=== PATIENT | female | born 1985 | race Caucasian/White ===

== ENCOUNTER 2025-07-09 10:32 | Outpatient (CLI) | payer MEDICAID, SELFPAY ==
[2025-07-09 11:29] LABS: Hematocrit 41.8 % (36-47); Hemoglobin 13.30 g/dL (11.27-16.99); Mean Corpuscular HGB Conc 31.8 g/dL (30-55); Mean Corpuscular Hemoglobin 26.7 pg (27-33); Mean Corpuscular Volume 83.9 fl (85-98); Nucleated Red Blood Cells % 0 %; Platelet Count 364 10^3/cmm (157-399); Red Blood Count 4.98 10^6/uL (3.85-5.65); White Blood Count 7.96 10^3/uL (3.29-11.43)
[2025-07-09 12:13] LABS: Alanine Aminotransferase 19 U/L (0-33); Albumin Level 4.2 g/dL (3.5-5.2); Alkaline Phosphatase 74 U/L (35-105); Anion Gap 16.2 (5-19); Aspartate Amino Transferase 23 U/L (0-32); Blood Urea Nitrogen 5 mg/dL (6-20); Calcium 8.9 mg/dL (8.5-10.5); Carbon Dioxide 22 mmol/L (22-29); Chloride 104 mmol/L (98-107); Ferritin 24 ng/mL (15-150); Globulin 3.5 g/dL (1.3-4.6); Glucose 96 mg/dL (65-115); Iron 109 ug/dL (37-145); Osmolality Calculated 283 mOsm/kg (285-295); Potassium 4.2 mmol/L (3.5-5.1); Sodium 138 mmol/L (136-145); Thyroid Stimulating Hormone 1.07 uIU/mL (0.27-4.20); Total Iron Binding Capacity 433 mcg/dl; Total Protein 7.7 g/dL (6.6-8.7); Unsaturated Iron Binding 324 ug/dL (112-347); Vitamin B12 441 pg/mL (232-1245)
== END 2025-07-09 10:33 | disposition home or self-care (01) ==
PROVIDERS: Specialist; PCP Family Medicine; Visit Provider Family Medicine
DX: G25.81 Restless legs syndrome (principal); R03.0 Elevated blood-pressure reading, without diagnosis of hypertension
CPT/HCPCS: 36415; 80053; 82607; 82728; 83540; 83550; 84443; 85025; 85651; 99204

== ENCOUNTER 2025-09-08 16:47 | Inpatient (IN) | payer MEDICAID, SELFPAY ==
--- OUTSIDE RECORDS SUMMARY | 2018-05-29 08:49 | XMS_ITS | Continuity of Care Document ---
Author Organization [employer] Address [address] [facility] [place] [address] Phone Care Team Providers Care New Media Strategist Name Role Phone Gurpreet Nassar MD Unavailable Unavailable Allergies, Adverse Reactions, Alerts Substance Reaction Status Criticality No Known Allergies Active No Inform ation Medications Medication Instructions Dosage Effective Dates (start - stop) Status Comments amitriptyline 25 mg tablet take 1 tablet by oral route every day at bedtime 25 MG - Active Celexa 40 mg tablet take 1 tablet by oral route every day 40 MG - Active terazosin 1 mg capsule take 2 capsule by oral route every day at bedtime 2 MG - Active terazosin 1 mg capsule take 2 capsule by oral route every day at bedtime 2 MG - No Longer Active amitriptyline 25 mg tablet take 1 tablet by oral route every day at bedtime 25 MG - No Longer Active Celexa 40 mg tablet take 1 tablet by oral route every day 40 MG - No Longer Active Procedures Procedure Date OFFICE/OUTPATIENT VISIT NEW Advance Directives Directive Yes / No Effective Date File Name No Information Encounters Encounter Description Practice Location Reason(s) For Visit Diagnoses Date Provider Providers Copied on Encounter [facility], [address] [place], [place], [id number], [place] tel:[phone] [facility] No Information Cesario Vázquez. [address], [place], [id number], [place]. tel:[phone] [facility], [address] , [place], [place], [id number], [place] tel:[phone] [facility] No Information Cesario Gurpreet. [address] [place] [address], [id number], [place]. tel:[phone] OFFICE/OUTPAT IENT VISIT [facility], [address] , [place], [place], [id number], [place] tel:[phone] [facility] establish care (chief complaint)P TSD (chief complaint) Post-traumati c stress disorder, unspecified Cesario Vázquez. [address] [place] [address], [id number], [place]. tel:[phone] Family History Family Member Type Diagnosis Age At Onset No Information Payers Payer name Insurance type Covered democrat ID Authoriza tion(s) No Information Social History Type Description Quantity Date Captured Comments Sex Female Smoking Status No Information Sexual Orientation Straight or heterosexual Jul Gender Identity Female Chief Complaint And Reason For Visit No Information Reason For Referral Reason For Referral No Information Plan Of Treatment Date Type Action Status Goal Tdap. Due on due Goal Td vaccine. Due on 18 due Goal Influenza vaccine. Due on due Goal Depression screening. Due on due Goal Pap/HPV testing. Due on due History Of Present Illness Encounter Date Complaint History Of Prese nt Illness PTSD establish care Functional Status Date Functional Assessmen t No Information Instructions Date Instruction Additional Infor mation No Information Assessments Type Assessment Date No Information Patient Care Teams Name Effective Dates (start - stop) Status Members No Information
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
[2025-09-08 16:53] VITALS: BMI 32.5
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
--- NOTE | 2025-09-08 16:59 | W.ED.PSYCHS ---
Documented by User: PRASAD Joy 09/08/25 17:57 HPI - Psych General: Chief Complaint: Psychiatric Symptoms Stated Complaint: SI - ETOH Time Seen by Provider: 09/08/25 16:48 Source: patient and EMS Mode of arrival: EMS Limitations: other (noncompliant patient) History of Present Illness: Patient is a 40-year-old female who presents the emergency department by ambulance for reported suicidal ideation. She arrives intoxicated screaming on arrival, intermittently hitting herself in the face and overall noncompliant patient limiting the review of systems and history. Unknown who called the ambulance, she has made comments to me about wanting to kill herself by hanging. She had also reported this to EMS personnel. She endorses hallucinations while in the room believing that she sees a dog. Tells me that she drinks daily, today states that she has had about a pint of fireball and has also smoked marijuana. Does not report any other substance use. She is telling me that she hurts all over, and wants to go to the psych unit as well as to rehabilitation. MD complaint: suicidal ideation Related Data Home Medications ?Medication ?Instructions ?Recorded ?Confirmed cetirizine 10 mg tablet 10 mg PO QDAY 07/09/25 09/08/25 chlorpromazine 100 mg tablet 100 mg PO BID 07/09/25 09/08/25 disulfiram 500 mg tablet 500 mg PO DAILY 07/09/25 09/08/25 eszopiclone 2 mg tablet 2 mg PO ONCE 07/09/25 09/08/25 fluticasone propionate 50 1 spray intranasal BID 07/09/25 09/08/25 mcg/actuation nasal spray,suspension gabapentin 600 mg tablet 600 mg PO BID 07/09/25 09/08/25 lamotrigine 100 mg tablet 100 mg PO BID 07/09/25 09/08/25 pantoprazole 40 mg tablet,delayed 40 mg PO DAILY 07/09/25 09/08/25 release ziprasidone HCl 40 mg capsule 40 mg PO DAILY 07/09/25 09/08/25 ropinirole 2 mg tablet 2 mg PO BEDTIME 09/08/25 09/08/25 Previous Rx's ?Medication ?Instructions ?Recorded clonazepam 1 mg tablet (Klonopin) 1 mg PO .QPM #30 tabs 08/15/25 Allergies Allergy/AdvReac Type Severity Reaction Status Date / Time trazodone Allergy Severe ADR-Muscle Verified 09/08/25 21:53 Pain Review of Systems General: Reports: Other (unobtainable due to poor historian) PFS ED PFSH: Social History Smoking and tobacco/nicotine status: current every day tobacco/nicotine user Alcohol intake: current Substance/Drug Use: current Substance/Drug use frequency: few times a week Lives independently: No Household members: friend(s) Housing: House Marital status: Single service: No Current occupational status: disabled Physical Exam Const: OTHER: Patient is noncompliant, uncooperative, intermittently hitting herself and screaming. Intoxicated HENMT: COMMON NORMALS: normocephalic and atraumatic HEAD & SCALP: normocephalic and atraumatic OTHER: No facial bruising, abrasions, or lacerations Eye: COMMON NORMALS: Equal, round and reactive pupils present and EOMs intact bilaterally PUPIL: Yes Equal, round and reactive pupils present Neck/C-Spine: COMMON NORMALS: full ROM Resp: COMMON NORMALS: normal respiratory effort, No retractions, No use of accessory muscles and clear to auscultation bilaterally AUSCULTATION: clear to auscultation bilaterally Cardio: COMMON NORMALS: regular rate, regular rhythm, S1 normal heart sound present and S2 normal heart sound present RATE: regular rate RHYTHM: regular rhythm HEART SOUNDS: S1 normal heart sound present and S2 normal heart sound present Extremity: NARRATIVE EXTREMITY EXAM: Swelling and scattered abrasions and bruising to her dorsal right hand from punching Neuro: COMMON NORMALS: moves all extremities, no focal motor deficits and no sensory deficits noted Psych: APPEARANCE: Yes disheveled ATTITUDE: Yes uncooperative and Yes aggressive ACTIVITY/MOTOR BEHAVIOR: Yes hyperactivity SPEECH: Yes incoherent MOOD & AFFECT: Yes hostile affect THOUGHT PROCESS: incoherent THOUGHT CONTENT: Yes Suicidality present, No Homicidality present and Yes Hallucination(s) present visual Skin: COMMON NORMALS: no rashes or lesions noted GENERAL SKIN EXAM: no rashes or lesions noted Course Vital Signs: Vital signs: Vital Signs Temperature 97.6 F 09/09/25 06:28 Pulse Rate 86 09/09/25 06:28 Respiratory Rate 17 09/09/25 06:28 Blood Pressure 105/79 09/09/25 06:28 Pulse Oximetry 98 09/09/25 06:28 Oxygen Delivery Me thod Room Air 09/09/25 06:28 MDM - Psych Medical Decision Making Patient presented by ambulance for reported suicide ideation/attempt by hanging herself, intoxicated by EMS arrival and she is belligerent here in the emergency department requiring restraint as well as medication. She had been self-harming by hitting objects as well as herself, x-ray of the right hand however does not reveal any bony abnormality. She was overall poor historian unable to tell me why she was having thoughts, history of recent thoughts, medication changes, or any other reliable history. Blood alcohol is 307, she will be cleared medically and monitored here in the emergency department for appropriate amount of time prior to admission to the neuropsychiatric unit where Dr. Rogers accepts. She is on a 96-hour hold, affidavits in chart. Dr. Estrada briefed on this patient's case. Lab Data 09/08/25 17:11 09/08/25 17:11 Radiology Impressions Hand X-Ray 09/08/25 16:53 IMPRESSION: No acute findings. Laboratory Results WBC 10.39 10^3/uL (3.29-11.43) 09/08/25 17:11 RBC 4.95 10^6/uL (3.85-5.65) 09/08/25 17:11 Hgb 13.10 g/dL (11.27-16.99) 09/08/25 17:11 Hct 40.0 % (36-47) 09/08/25 17:11 MCV 80.8 fl (85-98) L 09/08/25 17:11 MCH 26.5 pg (27-33) L 09/08/25 17:11 MCHC 32.8 g/dL (30-55) 09/08/25 17:11 RDW 15.9 % (12.1-15.1) H 09/08/25 17:11 Plt Count 412 10^3/cmm (157-399) H 09/08/25 17:11 MPV 9.5 fL (7.4-10.4) 09/08/25 17:11 Neut % (Auto) 24.0 % 09/08/25 17:11 Lymph % (Auto) 63.3 % 09/08/25 17:11 Stanislaus % (Auto) 7.0 % 09/08/25 17:11 Eos % (Auto) 3.9 % 09/08/25 17:11 Baso % (Auto) 1.6 % 09/08/25 17:11 Neut # (Auto) 2.48 10^3/uL (1.8-7.7) 09/08/25 17:11 Lymph # (Auto) 6.6 10^3/uL (0.8-4.8) H 09/08/25 17:11 Stanislaus # (Auto) 0.7 10^3/uL (0.2-0.9) 09/08/25 17:11 Eos # (Auto) 0.4 10^3/uL (0.0-0.8) 09/08/25 17:11 Baso # (Auto) 0.2 10^3/uL (0.0-0.1) H 09/08/25 17:11 Nucleated RBC % (auto) 0 % 09/08/25 17:11 Nucleated RBCs # 0.0 /100WBC 09/08/25 17:11 Sodium 145 mmol/L (136-145) 09/08/25 17:11 Potassium 3.8 mmol/L (3.5-5.1) 09/08/25 17:11 Chloride 110 mmol/L (98-107) H 09/08/25 17:11 Carbon Dioxide 20 mmol/L (22-29) L 09/08/25 17:11 Anion Gap 18.8 (5-19) 09/08/25 17:11 BUN 4 mg/dL (6-20) L 09/08/25 17:11 Creatinine 0.7 mg/dL (0.5-0.9) 09/08/25 17:11 GFR Calculation 92.7 mL/min (90-130) 09/08/25 17:11 Glucose 101 mg/dL (65-115) 09/08/25 17:11 Calculated Osmolality 297 mOsm/kg (285-295) H 09/08/25 17:11 Calcium 8.5 mg/dL (8.5-10.5) 09/08/25 17:11 Total Bilirubin 0.2 mg/dL (0.15-1.2) 09/08/25 17:11 AST 25 U/L (0-32) 09/08/25 17:11 ALT 23 U/L (0-33) 09/08/25 17:11 Alkaline Phosphatase 94 U/L (35-105) 09/08/25 17:11 Total Protein 7.6 g/dL (6.6-8.7) 09/08/25 17:11 Albumin 4.2 g/dL (3.5-5.2) 09/08/25 17:11 Globulin 3.4 g/dL (1.3-4.6) 09/08/25 17:11 HCG, Qual Negative (Negative) 09/08/25 17:11 Salicylates < 0.3 mg/dL (3-10) L 09/08/25 17:11 Urine Opiates Screen Negative ng/mL (Negative) 09/08/25 17:03 Acetaminophen < 5.0 ug/mL (10-30) L 09/08/25 17:11 Ur Barbiturates Screen Negative ng/mL (Negative) 09/08/25 17:03 Ur Phencyclidine Scrn Negative ng/mL (Negative) 09/08/25 17:03 Ur Amphetamines Screen Negative ng/mL (Negative) 09/08/25 17:03 U Benzodiazepines Scrn Negative ng/mL (Negative) 09/08/25 17:03 Urine Cocaine Screen Negative ng/mL (Negative) 09/08/25 17:03 U Marijuana (THC) Screen Positive ng/mL (Negative) H 09/08/25 17:03 Ethyl Alcohol 307 mg/dL (0-10) H* 09/08/25 17:11 All radiology interpretation(s) finalized by discharge Discharge Plan Discharge Patient Disposition: Admitted As Inpatient Admit Provider: Srini Rogers Clinical Impression: Suicidal ideation, Alcohol intoxication Condition: Stable Coding Level of Care Code ED Swing Grinder for Halleyg Fwd Documented by User: Isai Estrada DO 09/09/25 07:06 HPI - Psych General: Chief Complaint: Psychiatric Symptoms Stated Complaint: SI - ETOH Time Seen by Provider: 09/08/25 16:48 Related Data Home Medications ?Medication ?Instructions ?Recorded ?Confirmed cetirizine 10 mg tablet 10 mg PO QDAY 07/09/25 09/08/25 chlorpromazine 100 mg tablet 100 mg PO BID 07/09/25 09/08/25 disulfiram 500 mg tablet 500 mg PO DAILY 07/09/25 09/08/25 eszopiclone 2 mg tablet 2 mg PO ONCE 07/09/25 09/08/25 fluticasone propionate 50 1 spray intranasal BID 07/09/25 09/08/25 mcg/actuation nasal spray,suspension gabapentin 600 mg tablet 600 mg PO BID 07/09/25 09/08/25 lamotrigine 100 mg tablet 100 mg PO BID 07/09/25 09/08/25 pantoprazole 40 mg tablet,delayed 40 mg PO DAILY 07/09/25 09/08/25 release ziprasidone HCl 40 mg capsule 40 mg PO DAILY 07/09/25 09/08/25 ropinirole 2 mg tablet 2 mg PO BEDTIME 09/08/25 09/08/25 Previous Rx's ?Medication ?Instructions ?Recorded clonazepam 1 mg tablet (Klonopin) 1 mg PO .QPM #30 tabs 08/15/25 Allergies Allergy/AdvReac Type Severity Reaction Status Date / Time trazodone Allergy Severe ADR-Muscle Verified 09/08/25 21:53 Pain PFSH ED PFSH: Social History Smoking and tobacco/nicotine status: current every day tobacco/nicotine user Alcohol intake: current Substance/Drug Use: current Substance/Drug use frequency: few times a week Lives independently: No Household members: friend(s) Housing: House Marital status: Single service: No Current occupational status: disabled Course Vital Signs: Vital signs: Vital Signs Temperature 97.6 F 09/09/25 06:28 Pulse Rate 86 09/09/25 06:28 Respiratory Rate 17 09/09/25 06:28 Blood Pressure 105/79 09/09/25 06:28 Pulse Oximetry 98 09/09/25 06:28 Oxygen Delivery Me thod Room Air 09/09/25 06:28 MDM - Psych Medical Decision Making Patient presented by ambulance for reported suicide ideation/attempt by hanging herself, intoxicated by EMS arrival and she is belligerent here in the emergency department requiring restraint as well as medication. She had been self-harming by hitting objects as well as herself, x-ray of the right hand however does not reveal any bony abnormality. She was overall poor historian unable to tell me why she was having thoughts, history of recent thoughts, medication changes, or any other reliable history. Blood alcohol is 307, she will be cleared medically and monitored here in the emergency department for appropriate amount of time prior to admission to the neuropsychiatric unit where Dr. Rogers accepts. She is on a 96-hour hold, affidavits in chart. Dr. Estrada briefed on this patient's case. Chart reviewed and patient discussed with midlevel. Agree with assessment and plan. Lab Data 09/08/25 17:11 09/08/25 17:11 Radiology Impressions Hand X-Ray 09/08/25 16:53 IMPRESSION: No acute findings. Laboratory Results WBC 10.39 10^3/uL (3.29-11.43) 09/08/25 17:11 RBC 4.95 10^6/uL (3.85-5.65) 09/08/25 17:11 Hgb 13.10 g/dL (11.27-16.99) 09/08/25 17:11 Hct 40.0 % (36-47) 09/08/25 17:11 MCV 80.8 fl (85-98) L 09/08/25 17:11 MCH 26.5 pg (27-33) L 09/08/25 17:11 MCHC 32.8 g/dL (30-55) 09/08/25 17:11 RDW 15.9 % (12.1-15.1) H 09/08/25 17:11 Plt Count 412 10^3/cmm (157-399) H 09/08/25 17:11 MPV 9.5 fL (7.4-10.4) 09/08/25 17:11 Neut % (Auto) 24.0 % 09/08/25 17:11 Lymph % (Auto) 63.3 % 09/08/25 17:11 Stanislaus % (Auto) 7.0 % 09/08/25 17:11 Eos % (Auto) 3.9 % 09/08/25 17:11 Baso % (Auto) 1.6 % 09/08/25 17:11 Neut # (Auto) 2.48 10^3/uL (1.8-7.7) 09/08/25 17:11 Lymph # (Auto) 6.6 10^3/uL (0.8-4.8) H 09/08/25 17:11 [place] # (Auto) 0.7 10^3/uL (0.2-0.9) 09/08/25 17:11 Eos # (Auto) 0.4 10^3/uL (0.0-0.8) 09/08/25 17:11 Baso # (Auto) 0.2 10^3/uL (0.0-0.1) H 09/08/25 17:11 Nucleated RBC % (auto) 0 % 09/08/25 17:11 Nucleated RBCs # 0.0 /100WBC 09/08/25 17:11 Sodium 145 mmol/L (136-145) 09/08/25 17:11 Potassium 3.8 mmol/L (3.5-5.1) 09/08/25 17:11 Chloride 110 mmol/L (98-107) H 09/08/25 17:11 Carbon Dioxide 20 mmol/L (22-29) L 09/08/25 17:11 Anion Gap 18.8 (5-19) 09/08/25 17:11 BUN 4 mg/dL (6-20) L 09/08/25 17:11 Creatinine 0.7 mg/dL (0.5-0.9) 09/08/25 17:11 GFR Calculation 92.7 mL/min (90-130) 09/08/25 17:11 Glucose 101 mg/dL (65-115) 09/08/25 17:11 Calculated Osmolality 297 mOsm/kg (285-295) H 09/08/25 17:11 Calcium 8.5 mg/dL (8.5-10.5) 09/08/25 17:11 Total Bilirubin 0.2 mg/dL (0.15-1.2) 09/08/25 17:11 AST 25 U/L (0-32) 09/08/25 17:11 ALT 23 U/L (0-33) 09/08/25 17:11 Alkaline Phosphatase 94 U/L (35-105) 09/08/25 17:11 Total Protein 7.6 g/dL (6.6-8.7) 09/08/25 17:11 Albumin 4.2 g/dL (3.5-5.2) 09/08/25 17:11 Globulin 3.4 g/dL (1.3-4.6) 09/08/25 17:11 HCG, Qual Negative (Negative) 09/08/25 17:11 Salicylates < 0.3 mg/dL (3-10) L 09/08/25 17:11 Urine Opiates Screen Negative ng/mL (Negative) 09/08/25 17:03 Acetaminophen < 5.0 ug/mL (10-30) L 09/08/25 17:11 Ur Barbiturates Screen Negative ng/mL (Negative) 09/08/25 17:03 Ur Phencyclidine Scrn Negative ng/mL (Negative) 09/08/25 17:03 Ur Amphetamines Screen Negative ng/mL (Negative) 09/08/25 17:03 U Benzodiazepines Scrn Negative ng/mL (Negative) 09/08/25 17:03 Urine Cocaine Screen Negative ng/mL (Negative) 09/08/25 17:03 U Marijuana (THC) Screen Positive ng/mL (Negative) H 09/08/25 17:03 Ethyl Alcohol 307 mg/dL (0-10) H* 09/08/25 17:11 Discharge Plan Discharge Patient Disposition: Admitted As Inpatient Admit Provider: Srini Rogers Clinical Impression: Suicidal ideation, Alcohol intoxication Condition: Stable Coding Level of Care Code ED Swing Grinder for Eleazar Escobedo
[2025-09-08] MEDS: diphenhydrAMINE 50 mg/mL SDV 1mL IM (17:10)
[2025-09-08] MEDS: LORazepam 2 mg/mL INJ 1 mL IM (17:11)
[2025-09-08] MEDS: haloperidol inj 5 mg/mL INJ 1 mL IM ×2 (17:11→18:19)
[2025-09-08 17:14] VITALS: BP 123/83; PULSE 132; RESP 20; TEMP 37; O2SAT 97
--- NOTE | 2025-09-08 17:23 | PC.NURSE ---
PATIENT PLACED IN RESTRAINT BED DUE TO PUNCHING THE GLASS, LAM, AND HITTING HER HEAD. CODE 10 CALLED @ 1878.
[2025-09-08 17:37] LABS: Hematocrit 40.0 % (36-47); Hemoglobin 13.10 g/dL (11.27-16.99); Mean Corpuscular HGB Conc 32.8 g/dL (30-55); Mean Corpuscular Hemoglobin 26.5 pg (27-33); Mean Corpuscular Volume 80.8 fl (85-98); Nucleated Red Blood Cells % 0 %; Platelet Count 412 10^3/cmm (157-399); Red Blood Count 4.95 10^6/uL (3.85-5.65); White Blood Count 10.39 10^3/uL (3.29-11.43)
--- NOTE | 2025-09-08 17:41 | PC.NURSE ---
96 hr rights reviewed with pt @8215 with assistance of [facility] flight radio officer Mark. Copy of rights left with pt belongings. Water provided.
[2025-09-08 17:42] LABS: HCG, Serum Qual Negative (Negative)
[2025-09-08 17:48] LABS: Alanine Aminotransferase 23 U/L (0-33); Albumin Level 4.2 g/dL (3.5-5.2); Alkaline Phosphatase 94 U/L (35-105); Anion Gap 18.8 (5-19); Aspartate Amino Transferase 25 U/L (0-32); Blood Urea Nitrogen 4 mg/dL (6-20); Calcium 8.5 mg/dL (8.5-10.5); Carbon Dioxide 20 mmol/L (22-29); Chloride 110 mmol/L (98-107); Globulin 3.4 g/dL (1.3-4.6); Glucose 101 mg/dL (65-115); Osmolality Calculated 297 mOsm/kg (285-295); Potassium 3.8 mmol/L (3.5-5.1); Sodium 145 mmol/L (136-145); Total Protein 7.6 g/dL (6.6-8.7)
[2025-09-08 17:51] LABS: Acetaminophen < 5.0 ug/mL (10-30); Alcohol Level 307 mg/dL (0-10); Salicylate < 0.3 mg/dL (3-10)
[2025-09-08 18:02] LABS: Slide Review Slide Review Perform
--- NOTE | 2025-09-08 18:20 | PC.NURSE ---
PT UNCOOPERATIVE, UNABLE TO MONITOR VITALS. PT CONTINUOUSLY SCREAMING.
[2025-09-08 18:21] LABS: PCP Screen Urine Negative (Negative)
--- NOTE | 2025-09-08 19:27 | PC.NURSE ---
PT IS STILL REFUSING V/S PT KEEPS SCREAMING AND WILL NOT LISTEN TO STAFF TO STOP YELLING.
[2025-09-08 20:27] VITALS: BP 131/94; PULSE 114; O2SAT 100
[2025-09-08 20:55] LABS: Alcohol Level 236 mg/dL (0-10)
--- OUTSIDE RECORDS SUMMARY | 2025-09-08 21:27 | XMS_ITS | Clinical Summary ---
Author Organization [facility] Administrative Offices Address [address] [place] [id number] Care Team Providers Care Radiology Technologist Name Role Phone Unavailable Primary Care Provider Unavailabl e Medications No known medications Active Problems Problem Noted Date Diagnosed Date Weakness of left hand 08/12/2024 Encounters Date Type Department Care Team Description 09/02/2025 External Device Data [facility] Provider, Abstract 08/05/2025 External Device Data [facility] Provider, Abstract 07/30/2025 External Device Data [facility] Provider, Abstract 07/30/2025 External Device Data [facility] Provider, Abstract 07/22/2025 External Device Data [facility] Provider, Abstract 06/24/2025 External Device Data [facility] Provider, Abstract 06/24/2025 External Device Data [facility] Provider, Abstract 06/24/2025 External Device Data [facility] Provider, Abstract from Last 3 Months Social History Tobacco Use Types Packs/Day Years Used Date Smoking Tobacco: Every Day Cigarettes 0.5 5.9 Started: 2020 Tobacco Cessation:Ready to Q uit: Not Asked; Counseling Given: Not Answered Comments Unknown Sex and Gender Information Value Date Recorded Sex Assigned at Not on file Legal Sex Female 1:19 PM CDT Gender Identity Not on file Sexual Orientation Not on file Last Filed Vital Signs Vital Sign Reading Time Taken Comments Blood Pressure 110/82 10/01/2024 9:40 AM BUSINESS ANALYST Pulse - - Temperature - - Respiratory Rate - - Oxygen Saturation - - Inhaled Oxygen Concentration - - Weight 86.2 kg (190 lb) 10/01/2024 9:40 AM BUSINESS ANALYST Height 162.6 cm (5' 4 ) 10/01/2024 9:40 AM BUSINESS ANALYST Body Mass Index 32.61 10/01/2024 9:40 AM BUSINESS ANALYST Plan of Treatment Health Maintenance Due Date Last Done Comments Pre-Diabetes and Diabetes Screening 1985 DTAP/TDAP/TD VACCINES (1 - Tdap) 2004 HEPATITIS B VACCINES (1 of 3 - 19+ 3-dose series) 11/2003 HPV/Cotest (21-29) 2006 CERVICAL CANCER SCREENING 2015 HPV/Cotest (30-65) 2015 PAP SMEAR 2015 INFLUENZA VACCINE (#1) 2025 BREAST CANCER SCREENING 2025 HPV VACCINES (No Doses Required) Completed Insurance [id number] [place] [address] [facility] MEDICAID
--- OUTSIDE RECORDS SUMMARY | 2025-09-08 21:27 | XMS_ITS | Encounter Summary ---
Author Organization [facility] Address [address] [place] [address] Care Team Providers Care Culturist Name Role Phone Unavailable Primary Care Provider Unavailabl e Encounter Details Date Type Department Care Team (Late st Contact Info) Description 09/02/2025 External Device Data [facility] Provider, Abstract NO ADDRESS ON FILE Social History Tobacco Use Types Packs/Day Years Used Date Smoking Tobacco: Every Day Cigarettes 0.5 5.9 Started: 2019 Comments Unknown Sex and Gender Information Value Date Recorded Sex Assigned at Not on file Legal Sex Female 1:19 PM CDT Gender Identity Not on file Sexual Orientation Not on file documented as of this encounter Plan of Treatment Not on file documented as of this encounter Visit Diagnoses Not on filedocumented in this encounter
[2025-09-08 21:32] VITALS: BP 138/89; PULSE 112; RESP 20; TEMP 36.8; O2SAT 100
[2025-09-08 22:00] VITALS: BP 138/89; PULSE 112; RESP 20; TEMP 36.8; O2SAT 100
[2025-09-09 06:28] VITALS: BP 105/79; PULSE 86; RESP 17; TEMP 36.4; O2SAT 98
[2025-09-09 08:00] VITALS: BP 151/121; PULSE 106; RESP 17; TEMP 36.6; O2SAT 98
--- NOTE | 2025-09-09 08:56 | W.PM.NPUH&PS ---
Providers/Chief Complaint Admitting Physician: Srini Rogers MD Primary Care Provider: Abiel Cuevas Chief Complaint: SI - ETOH HPI NPU History of Present Illness Katherine Pinto is a 40 year old female who presented to the emergency department with the following report: Chief Complaint: Psychiatric Symptoms Stated Complaint: SI - ETOH Time Seen by Provider: 09/08/25 16:48 Source: patient and EMS Mode of arrival: EMS Limitations: other (noncompliant patient) History of Present Illness: Patient is a 40-year-old female who presents the emergency department by ambulance for reported suicidal ideation. She arrives intoxicated screaming on arrival, intermittently hitting herself in the face and overall noncompliant patient limiting the review of systems and history. Unknown who called the ambulance, she has made comments to me about wanting to kill herself by hanging. She had also reported this to EMS personnel. She endorses hallucinations while in the room believing that she sees a dog. Tells me that she drinks daily, today states that she has had about a pint of fireball and has also smoked marijuana. Does not report any other substance use. She is telling me that she hurts all over, and wants to go to the psych unit as well as to rehabilitation. complaint: suicidal ideation. She was admitted to the neuropsychiatric unit for definitive treatment of those issues. She is unknown to [facility] psychiatry through inpatient or outpatient services but reports that she has had services at different locations in her life. Most recently in the past few years in the [facility] system. She reports that she has been in misery much of her life. She presented with a UDS positive for cannabis and a BAL of 307. She reports that addiction has been a significant problem throughout her life. However she reports that she has had some sobriety recently being clean from everything but alcohol for several months. She identifies that she had been inpatient at [facility] twice in the past 3 years. She denies having significant outpatient care. She endorses having significant distress secondary to her restless leg syndrome as she moved her arm in a near consistent frequency throughout the interview was quite distracted endorsing that it was secondary to her restless leg syndrome. We discussed the risks, benefits and alternatives to turning her Requip back to the 4 mg daily that have been proposed by Dr. Austin during their July assessment. At some point that dose was decreased to 2 mg and she endorses not having relief at the current dose. We also discussed the [facility] protocol and that she would be administered medication to assist with her withdrawal with that protocol. She reports that she is having significant anxiety and depression and experiencing significant suicidal thoughts just feeling overwhelmed with her situation. She endorses that her addiction being out of control certainly affects her mental health and that she is hopeful that she can get into some kind of sober living program to assist with her recovery. She endorses being a heterosexual with 1 past marriage. She denies ever having children. She reports she does have family but there is spread throughout the country. She is not currently employed and appears to be homeless per her reporting. We discussed the risks, benefits and alternatives of us continuing to try to gather information about her and her history as we work on consideration of medication both for mood and anxiety as well as to assist in her recovery and she understood and agreed to proceed as is documented in this note. Meds NPU Home Medications ?Medication ?Instructions ?Recorded ?Confirmed ?Last Taken ?Type cetirizine 10 mg tablet 10 mg PO QDAY 07/09/25 09/08/25 Unknown History chlorpromazine 100 mg tablet 100 mg PO BID 07/09/25 09/08/25 Unknown History disulfiram 500 mg tablet 500 mg PO DAILY 07/09/25 09/08/25 Unknown History eszopiclone 2 mg tablet 2 mg PO ONCE 07/09/25 09/08/25 Unknown History fluticasone propionate 50 1 spray intranasal BID 07/09/25 09/08/25 Unknown History mcg/actuation nasal spray,suspension gabapentin 600 mg tablet 600 mg PO BID 07/09/25 09/08/25 Unknown History lamotrigine 100 mg tablet 100 mg PO BID 07/09/25 09/08/25 Unknown History pantoprazole 40 mg tablet,delayed 40 mg PO DAILY 07/09/25 09/08/25 Unknown History release ziprasidone HCl 40 mg capsule 40 mg PO DAILY 07/09/25 09/08/25 Unknown History clonazepam 1 mg tablet (Klonopin) 1 mg PO .QPM #30 tabs 08/15/25 09/08/25 Unknown Rx ropinirole 2 mg tablet 2 mg PO BEDTIME 09/08/25 09/08/25 Unknown History Allergies Allergy/AdvReac Type Severity Reaction Status Date / Time trazodone Allergy Severe ADR-Muscle Verified 09/08/25 21:53 Pain PFSH NPU PFSH: Social History Smoking and tobacco/nicotine status: current every day tobacco/nicotine user Alcohol intake: current Substance/Drug Use: current Substance/Drug use frequency: few times a week Lives independently: No Household members: friend(s) Housing: House Marital status: Single service: No Current occupational status: disabled Mental Status Exam MSE Comments: This is an obese white female in hospital scrubs on with poor grooming and fleeting eye contact.? No Werley tattoos on exposed skin including 1 on the side of her face close to her right eye. No abnormal movements except for psychomotor agitation.? She was mostly cooperative with exam in moderate to extreme distress.? Speech was slightly increased in rate and with mostly normal volume. ? Mood described as anxious Affect was subdued and mood congruent. Thought process was mostly linear. ? Thought content: Patient endorses suicidal but denied homicidal ideation. There were no delusions reported but possible paranoia noted. She denied auditory or visual hallucinations.? Attention and concentration were limited and her recent and remote memory were somewhat reliable, but none were formally tested. She is alert and oriented to person and place. Insight and judgment were impaired. Her impulse control is impaired. Vitals/I&O/Wt Last Vital Signs Temp 97.6 F 09/09/25 06:28 Pulse 86 09/09/25 06:28 Resp 17 09/09/25 06:28 BP 105/79 09/09/25 06:28 Pulse Ox 98 09/09/25 06:28 O2 Del Method Room Air 09/09/25 06:28 Weight last 48 hrs Weight 86.183 kg Data NPU 09/08/25 17:11 09/08/25 17:11 A&P Assessment and plan 1. Suicidal ideation: 2. Alcohol intoxication: 3. Alcohol withdrawal: 4. Depression: 5. Anxiety: 6. Restless legs syndrome: Plan: This is a 40-year-old white female with unknown to the system due to being out of the area but reporting a long history of addiction and some limited mental health issues that have not been adequately addressed in general in the past who presents worsening a desire to get stabilized and possibly get to a sober living treatment facility. Presented positive for cannabis with a blood alcohol of 307. 1. Encourage individual, group and milieu therapy. 2. Recommend sober living treatment at the highest level of care to which the patient is willing to commit. 3. Continue q-15 minute checks for safety.? 4.? Continue current medication. Will return Requip to milligram dose that had been recommended by Dr. Austin in her last note. Evaluate for SSRI/anxiety/depression medications as well as absence enhancing medications. 5.? Will attempt to gather collateral information. 6. Evaluate against the backdrop of the 96-hour hold. PDMP PDMP Reviewed: Not Reviewed Involuntary Hold Information Hold Status: Legal Status: 96 Hour Hold Date/Time Hold Expires: 09/12/25@17:15 Attestations NPU Medical Necessity Statement*: Inpatient hospitalization is medically necessary and the clinically appropriate intervention at this time. We will monitor/initiate medications as indicated. She will be in the hospital for over 2 midnights. Likely length of stay 5-7 days. Coding Level of Care Code Acute Code for g Fwd Diagnoses Suicidal ideation R45.851 Alcohol intoxication F10.929 Alcohol withdrawal F10.939 Depression F32.A Anxiety F41.9 Restless legs syndrome G25.81
[2025-09-09] MEDS: multivitamin therapeutic Tablet 1 TAB PO (10:27)
[2025-09-09 12:00] VITALS: BP 118/73; PULSE 104; RESP 18; TEMP 36.9; O2SAT 94
[2025-09-09 20:00] VITALS: BP 117/82; PULSE 108; RESP 17; TEMP 37.1; O2SAT 96
[2025-09-10] VITALS: BP 135/92; PULSE 88; RESP 18; TEMP 36.9; O2SAT 96
[2025-09-10 04:00] VITALS: BP 130/94; PULSE 105; RESP 20; TEMP 36.4; O2SAT 97
[2025-09-10] MEDS: fluticasone nasal spray 16gm Btl 1 SPRAY INTRANASAL (05:14)
[2025-09-10 08:00] VITALS: BP 133/94; PULSE 118; RESP 18; TEMP 36.8; O2SAT 98
[2025-09-10] MEDS: multivitamin therapeutic Tablet 1 TAB PO (08:41)
--- NOTE | 2025-09-10 12:42 | PC.NURSE ---
Pt. smashed her middle finger on the right hand in the door today, and her fingernail is not blue.
[2025-09-10 13:47] VITALS: BP 119/78; PULSE 97; RESP 15; TEMP 36.9; O2SAT 98
--- NOTE | 2025-09-10 19:18 | P.NPUPN_ITS ---
Subjective NPU 2 Subjective: Patient presented today reporting that she is feeling okay. She reports that the increase in her Requip was helpful and that she really needs to focus on her recovery. She is reported to desire a plan to do inpatient rehab and she is working with the social work team towards that end. She denied any side effects of the medication. Mental Status Exam 2 MSE Comments: This is an obese white female in hospital scrubs on with poor grooming and fleeting eye contact.? No Werley tattoos on exposed skin including 1 on the side of her face close to her right eye. No abnormal movements except for psychomotor agitation.? She was mostly cooperative with exam in moderate to extreme distress.? Speech was slightly increased in rate and with mostly normal volume. ? Mood described as anxious Affect was subdued and mood congruent. Thought process was mostly linear. ? Thought content: Patient endorses suicidal but denied homicidal ideation. There were no delusions reported but possible paranoia noted. She denied auditory or visual hallucinations.? Attention and concentration were limited and her recent and remote memory were somewhat reliable, but none were formally tested. She is alert and oriented to person and place. Insight and judgment were impaired. Her impulse control is impaired. Vitals/I&O/Wt Last Vital Signs Temp 97.7 F 09/10/25 23:34 Pulse 115 H 09/10/25 23:34 Resp 18 09/10/25 23:34 BP 144/104 09/10/25 23:34 Pulse Ox 97 09/10/25 23:34 O2 Del Method Room Air 09/10/25 23:34 Data NPU 09/08/25 17:11 09/08/25 17:11 A&P Assessment and plan 1. Suicidal ideation: 2. Alcohol intoxication: 3. Alcohol withdrawal: 4. Depression: 5. Anxiety: 6. Restless legs syndrome: Plan: This is a 40-year-old white female with unknown to the system due to being out of the area but reporting a long history of addiction and some limited mental health issues that have not been adequately addressed in general in the past who presents worsening a desire to get stabilized and possibly get to a sober living treatment facility. Presented positive for cannabis with a blood alcohol of 307. 1. Encourage individual, group and milieu therapy. 2. Recommend sober living treatment at the highest level of care to which the patient is willing to commit. 3. Continue q-15 minute checks for safety.? 4.? Continue current medication. Will return Requip to milligram dose that had been recommended by Dr. Austin in her last note. Evaluate for SSRI/anxiety/depression medications as well as absence enhancing medications. 5.? Will attempt to gather collateral information. 6. Evaluate against the backdrop of the 96-hour hold. PDMP PDMP Reviewed: Not Reviewed Involuntary Hold Information 2 Hold Status: Legal Status: 96 Hour Hold Date/Time Hold Expires: 1 11/13/24@17:15 Attestations NPU 2 Medical Necessity Statement*: Inpatient hospitalization is medically necessary and the clinically appropriate intervention at this time. We will monitor/initiate medications as indicated. Likely length of stay 4-6 days. Coding Level of Care Code Acute Code for g Fwd Diagnoses Suicidal ideation R45.851 Alcohol intoxication F10.929 Alcohol withdrawal F10.939 Depression F32.A Anxiety F41.9 Restless legs syndrome G25.81
[2025-09-10 20:00] VITALS: BP 124/94; PULSE 128; RESP 18; TEMP 36.1; O2SAT 100
[2025-09-10 23:34] VITALS: BP 144/104; PULSE 115; RESP 18; TEMP 36.5; O2SAT 97
--- NOTE | 2025-09-11 05:07 | PC.NURSE ---
PRN MEDICATIONS/ PT BEHAVIOR Throughout the beginning of the shift pt came up to the nurses station several times asking for something to help her sleep and something to help her restless leg. This nurse offered pt several different anxiety meds and a cogentin for the restless leg. Pt then came up shortly after the cogentin was given and asked for a shot to help her sleep This nurse informed the pt that I cannot just give her a shot. Pt then began stating that she has kept her cool as long as she can and that she is going to start ripping her hair out and losing her shit if this nurse does not call the Dr. This nurse at this time called Dr. Rogers and explained to him the situation. While on the phone with Dr. Rogers the pt yelled out several times trying to talk to the provider over the phone. Dr. Rogers at this time gave this nurse an order to give the pt a PO B52. A PO B52 was administered to the pt at 2223. During shift assessment this nurse asked pt if she wanted anything to help her sleep and the pt replied anything but Trazodone it gives her terrible restless leg. Throughout the night this pt came up to the desk several times asking for Trazodone stating that it will help her get to sleep. This nurse informed pt that Trazodone is listed on her allergies and that we cannot give it to her. This nurse also stated that her reaction to Trazodone is muscle pain and that since she already has restless leg it would not be good for her. Pt then stated well sometimes it gives me restless leg and sometimes it helps it. This nurse apologized to the pt and offered her something else for sleep each time to which pt accepted
--- NOTE | 2025-09-11 06:41 | PC.NURSE ---
vs not completed pt sleeping soundly, nurse notified resp 17
[2025-09-11] MEDS: fluticasone nasal spray 16gm Btl 1 SPRAY INTRANASAL ×2 (07:47→17:24)
[2025-09-11] MEDS: multivitamin therapeutic Tablet 1 TAB PO (07:47)
[2025-09-11 07:51] VITALS: BP 136/97; PULSE 95; RESP 17; TEMP 36.4; O2SAT 99
[2025-09-11 12:00] VITALS: RESP 16
--- NOTE | 2025-09-11 15:22 | P.NPUPN_ITS ---
Subjective NPU 2 Subjective: Patient presented today reporting that she is doing okay. She endorsed an understanding that her hold is up tomorrow and endorsed a desire to discharge to her mother's house. We had a discussion about her initial plan to go to rehab and she reports she has the information for preferred families and her plan is to go in the surrounding her family and in the event that things do not go as she desires she will plan to call preferred family to set up her own bed date at that time. She denied any side effects to medications. Mental Status Exam 2 MSE Comments: This is an obese white female in hospital scrubs on with poor grooming and fleeting eye contact.? No Werley tattoos on exposed skin including 1 on the side of her face close to her right eye. No abnormal movements except for psychomotor agitation.? She was mostly cooperative with exam in moderate to extreme distress.? Speech was slightly increased in rate and with mostly normal volume. ? Mood described as anxious Affect was subdued and mood congruent. Thought process was mostly linear. ? Thought content: Patient denied suicidal or homicidal ideation. There were no delusions reported but possible paranoia noted. She denied auditory or visual hallucinations.? Attention and concentration were limited and her recent and remote memory were somewhat reliable, but none were formally tested. She is alert and oriented to person and place. Insight and judgment were impaired. Her impulse control is impaired. Vitals/I&O/Wt Last Vital Signs Temp 97.6 F 09/11/25 07:51 Pulse 95 09/11/25 07:51 Resp 16 09/11/25 12:00 BP 136/97 09/11/25 07:51 Pulse Ox 99 09/11/25 07:51 O2 Del Method Room Air 09/11/25 07:51 Data NPU 09/08/25 17:11 09/08/25 17:11 A&P Assessment and plan 1. Suicidal ideation: 2. Alcohol intoxication: 3. Alcohol withdrawal: 4. Depression: 5. Anxiety: 6. Restless legs syndrome: Plan: This is a 40-year-old white female with unknown to the system due to being out of the area but reporting a long history of addiction and some limited mental health issues that have not been adequately addressed in general in the past who presents worsening a desire to get stabilized and possibly get to a sober living treatment facility. Presented positive for cannabis with a blood alcohol of 307. 1. Encourage individual, group and milieu therapy. 2. Recommend sober living treatment at the highest level of care to which the patient is willing to commit. 3. Continue q-15 minute checks for safety.? 4.? Continue current medication. Will return Requip to milligram dose that had been recommended by Dr. Austin in her last note. Evaluate for SSRI/anxiety/depression medications as well as absence enhancing medications. 5.? Will attempt to gather collateral information. 6. Evaluate against the backdrop of the 96-hour hold. Hold is tomorrow and patient is now reporting she has no interest in being connected with preferred family for rehab and that she will call them if she struggles with this support of her family when she discharges. PDMP PDMP Reviewed: Not Reviewed Involuntary Hold Information 2 Hold Status: Legal Status: 96 Hour Hold Date/Time Hold Expires: 1 11/13/24@17:15 Attestations NPU 2 Medical Necessity Statement*: Inpatient hospitalization is medically necessary and the clinically appropriate intervention at this time. We will monitor/initiate medications as indicated. Likely length of stay 1-3 days. Coding Level of Care Code Acute Code for Chg Fwd Diagnoses Suicidal ideation R45.851 Alcohol intoxication F10.929 Alcohol withdrawal F10.939 Depression F32.A Anxiety F41.9 Restless legs syndrome G25.81
[2025-09-11 16:00] VITALS: BP 130/90; PULSE 96; RESP 16; TEMP 37; O2SAT 96
[2025-09-11 20:00] VITALS: BP 132/100; PULSE 100; RESP 17; TEMP 36.4; O2SAT 98
--- NOTE | 2025-09-12 00:37 | PC.NURSE ---
pt refused vs, resp 17 nurse notified
--- NOTE | 2025-09-12 06:27 | PC.NURSE ---
pt refused vs nurse notified, resp 17
[2025-09-12] MEDS: fluticasone nasal spray 16gm Btl 1 SPRAY INTRANASAL (07:55)
[2025-09-12] MEDS: multivitamin therapeutic Tablet 1 TAB PO (07:55)
[2025-09-12 08:00] VITALS: BP 132/80; PULSE 18; RESP 17; TEMP 36.4; O2SAT 96
[2025-09-12 09:18] VITALS: PULSE 104
--- NOTE | 2025-09-12 09:18 | ECG_ITS ---
[facility] Date: 2025-09-12 Pat Name: Katherine Pinto Department: Room: 150 Gender: Female [employer] Cook: : 1985 Requested By: Srini Rogers Order Number: [id number] Cynthia MD: Thien Amos M.D. Measurements Intervals [place] Rate: 105 P: 43 NE: 114 QRS: 48 QRSD: 93 T: 9 QT: 346 QTc: 458 Interpretive Statements SINUS TACHYCARDIA WITH SHORT NE INTERVAL NONSPECIFIC MILD T WAVE INVERSION IN LEAD III AND MINOR ST DEPRESSION IN LEAD AVF ABNORMAL ECG No previous ECG available for comparison Electronically Signed On 09-12-2025 13:35:03 CAR STOWER by Thien Amos M.D. [id number] [id number]
[2025-09-12 09:42] VITALS: BP 132/82; PULSE 81; RESP 18; TEMP 36.4; O2SAT 96
[2025-09-12 11:19] VITALS: BP 130/75; PULSE 80; RESP 17; TEMP 37; O2SAT 96
--- NOTE | 2025-09-12 13:14 | PC.NURSE ---
Patient discharge instruction reviewed. Patient denies questions at this time. Patient left by private vehicle to home.
--- NOTE | 2025-09-12 13:36 | PC.NURSE ---
Attempt to contact patient on her cell number [phone] to report her non acute ekg change per Dr. Amos.
--- NOTE | 2025-09-12 13:57 | PC.NURSE ---
Patient was notified by this RN that Dr. Rogers is discontinuing her Geodon. Patient verbalized understanding. PHarmacy notified ([facility]) to discontinue refills on Geodon.
== END 2025-09-12 13:00 | disposition home or self-care (01) | DRG 775 ==
LOC: ER 17:38 → NP 18:10
PROVIDERS: Emergency Medicine; Admitting Provider Psychiatry & Neurology Psychiatry; Emergency Provider Physician Assistant; PCP Family Medicine; Visit Provider Psychiatry & Neurology Psychiatry
DX: F10.929 Alcohol use, unspecified with intoxication, unspecified (principal); Y90.8 Blood alcohol level of 240 mg/100 ml or more; R45.851 Suicidal ideations; F10.939 Alcohol use, unspecified with withdrawal, unspecified; F32.A Depression, unspecified; A41.9 Sepsis, unspecified organism; G25.81 Restless legs syndrome; E66.9 Obesity, unspecified; Z68.32 Body mass index [BMI] 32.0-32.9, adult; F17.200 Nicotine dependence, unspecified, uncomplicated; Z59.00 Homelessness unspecified; Z56.0 Unemployment, unspecified
CPT/HCPCS: 36415; 73130; 80053; 80306; 80307; 84703; 85025; 93005; 96372; 97165; 99285; J1200; J1630; J2060; J9999; Q0161; Q0163